=== PATIENT | female | born 1990 | race Hispanic/Latino ===

== ENCOUNTER 2019-05-07 04:07 | Emergency (ER) | payer MEDICARE, OTHER ==
[~2019-05-07 04:07] MED LIST: ACET-66 PO; ESOM40CA54 PO; LEVAHFA IH; MOME13HF IH; MOME17N NASAL; MONT10TA24 PO
[2019-05-07] MEDS ORDERED: KETOROLAC TROMETHAMINE 30MG/ML ONE (06:16)
[2019-05-07] MEDS ORDERED: TRAMADOL HCL 50 MG TABLET ONE (06:18)
[2019-05-07] MEDS ORDERED: TETANUS/DIPHTHERIA TOXOID [ADULT] 0.5 ML VIAL IM ONE (06:34)
== END 2019-05-07 06:50 | disposition home or self-care (01) ==
LOC: EDH 04:07
DX: S80.211A Abrasion, right knee, initial encounter (principal); M25.562 Pain in left knee; M54.5 Low back pain; J45.909 Unspecified asthma, uncomplicated; Z90.710 Acquired absence of both cervix and uterus; Z88.8 Allergy status to other drugs, medicaments and biological substances; W18.39XA Other fall on same level, initial encounter; Y93.89 Activity, other specified; Y99.8 Other external cause status; Y92.89 Other specified places as the place of occurrence of the external cause
CPT/HCPCS: 29505; 72100; 73562; 90471; 90714; J1885

== ENCOUNTER 2020-05-20 01:32 | Emergency (ER) | payer OTHER ==
[~2020-05-20 01:32] MED LIST changes: -MONT10TA24 PO; +MONT10TA96 PO
[2020-05-20] MEDS ORDERED: HYDROCODONE/ACETAMINOPHEN 10/325 MG TAB ONE (03:02)
== END 2020-05-20 03:47 | disposition home or self-care (01) ==
LOC: EDH 01:32
DX: S83.91XA Sprain of unspecified site of right knee, initial encounter (principal); J45.909 Unspecified asthma, uncomplicated; Z88.1 Allergy status to other antibiotic agents; Z90.710 Acquired absence of both cervix and uterus; W01.198A Fall on same level from slipping, tripping and stumbling with subsequent striking against other object, initial encounter; Y93.89 Activity, other specified; Y92.89 Other specified places as the place of occurrence of the external cause; Y99.8 Other external cause status
CPT/HCPCS: 73562